=== PATIENT | female | born 2000 | race American Indian/Alaskan Native ===

== ENCOUNTER 2021-01-02 18:57 | Emergency (ER) | payer SELFPAY ==
[2021-01-02 20:08] VITALS: BP 133/85
--- NOTE | 2021-01-02 20:30 | Event Note ---
ED Screening Note Date of service: 01/02/21 Time: 20:28 ED Screening Note: 20-year-old female patient presents to emergency department with complaints of sore throat, cough, and hemoptysis. Patient states she has been coughing for the last 2 days and today she began noticing bright red blood when she coughed. She is not bleeding from any anywhere else. No known sick contacts. She is not anticoagulated. No recent surgery. General: Awake, appropriately interactive, no acute distress. ENT: There is bright red blood noted to the right tonsil. Uvula is midline and nonedematous. No exudate. Neck: Supple. Full range of motion intact. Tender right cervical lymphadenopathy. Cardiovascular: Normal peripheral perfusion. Pulmonary: No respiratory distress. Patient is speaking normally without use of accessory muscles. Skin: No apparent rashes or lesions. Neurological: No facial asymmetry. Speech is clear. Follows commands. Patient is alert and oriented. Musculoskeletal: Moves all four extremities spontaneously with normal range of motion. Psych: Cooperative. Appropriate mood and affect. I have greeted and performed a focused rapid initial assessment of this patient. A comprehensive ED assessment and evaluation of the patient, analysis of all test results, and completion of the medical decision-making process will be conducted by additional ED providers. This initial assessment/diagnostic orders/clinical plan/treatment(s) is/are subject to change based on patients health status, clinical progression and re-assessment. Further treatment and workup at subsequent clinical provider's discretion. Patient/guardian urged not to elope from the ED as their condition may be serious if not clinically assessed and managed.
--- NOTE | 2021-01-02 20:54 | XRay Report ---
CHEST 2 VIEWS INDICATION / CLINICAL INFORMATION: cough. COMPARISON: None available. FINDINGS: SUPPORT DEVICES: None. HEART / MEDIASTINUM: No significant abnormality. LUNGS / PLEURA: No significant pulmonary or pleural abnormality. No pneumothorax. ADDITIONAL FINDINGS: No significant additional findings. IMPRESSION: 1. No acute findings. Signer Name: Kyaw Ruvalcaba MD Signed: 01/02/2021 8:50 PM Workstation Name: [id number]
--- NOTE | 2021-01-02 22:39 | Emergency Department Report ---
ED General Adult HPI - General Chief complaint: Upper Respiratory Infection Stated complaint: COUGHING UP BLOOD Time Seen by Provider: 01/02/21 22:33 Source: patient Mode of arrival: Ambulatory Limitations: No Limitations - History of Present Illness Initial comments: Patient 20-year-old -[place] female with a history of strep throat who presents for sore throat and ear pain x3 days. Patient states mother had strep throat at home 1 last week. Symptoms today include pain with swallowing, malaise and nocturnal fever. Temp is 99.9 in triage today. Patient is tolerating p.o. liquids with some pain. Patient denies relieving factors. There is clear postnasal drip with cough and chest wall pain with coughing. Patient denies history of asthma there is no wheezing no stridor. - Related Data Previous Rx's Medication Instructions Recorded Last Taken Type Acetaminophen/Codeine [Tylenol #3] 1 tab PO QHS PRN #12 tablet 01/25/16 Unknown Rx Amoxicillin [Amoxicillin TAB] 875 mg PO BID #20 tablet 01/25/16 Unknown Rx Ibuprofen [Motrin] 600 mg PO Q8H PRN #21 tablet 01/25/16 Unknown Rx Ketorolac [Toradol] 10 mg PO Q6H PRN #15 tablet 06/16/20 Unknown Rx methOCARBAMOL [Robaxin] 750 mg PO Q8H PRN #21 tablet 06/16/20 Unknown Rx Amoxicillin/Potassium Clav 1 each PO BID 7 Days #14 tablet 01/02/21 Unknown Rx [Augmentin 875-125 Tablet] Ibuprofen [Motrin 800 MG tab] 800 mg PO Q8HR PRN #30 tablet 01/02/21 Unknown Rx predniSONE [Deltasone] 40 mg PO QDAY 5 Days #10 tab 01/02/21 Unknown Rx Allergies Allergy/AdvReac Type Severity Reaction Status Date / Time No Known Allergies Allergy Verified 01/25/16 20:38 ED Review of Systems ROS: Stated complaint: COUGHING UP BLOOD Other details as noted in HPI Constitutional: chills, fever, malaise Eyes: denies: eye pain, eye discharge, vision change ENT: ear pain, throat pain, congestion Respiratory: cough. denies: shortness of breath, wheezing Cardiovascular: chest pain (chest wall pain with cough) Endocrine: no symptoms reported Gastrointestinal: denies: abdominal pain, nausea, vomiting, diarrhea Genitourinary: denies: urgency, dysuria, discharge Musculoskeletal: denies: back pain, joint swelling, arthralgia Skin: denies: rash, lesions Neurological: denies: headache, weakness, paresthesias, vertigo Psychiatric: denies: anxiety, depression Hematological/Lymphatic: denies: easy bleeding, easy bruising ED Past Medical Hx - Past Medical History Previous Medical History?: No Additional medical history: ectopic - Surgical History Past Surgical History?: Yes Additional Surgical History: ectopic - Social History Smoking Status: Never Smoker Substance Use Type: None - Medications Home Medications: Home Medications Medication Instructions Recorded Confirmed Last Taken Type Acetaminophen/Codeine [Tylenol #3] 1 tab PO QHS PRN #12 tablet 01/25/16 Unknown Rx Amoxicillin [Amoxicillin TAB] 875 mg PO BID #20 tablet 01/25/16 Unknown Rx Ibuprofen [Motrin] 600 mg PO Q8H PRN #21 tablet 01/25/16 Unknown Rx Ketorolac [Toradol] 10 mg PO Q6H PRN #15 tablet 06/16/20 Unknown Rx methOCARBAMOL [Robaxin] 750 mg PO Q8H PRN #21 tablet 06/16/20 Unknown Rx Amoxicillin/Potassium Clav 1 each PO BID 7 Days #14 tablet 01/02/21 Unknown Rx [Augmentin 875-125 Tablet] Ibuprofen [Motrin 800 MG tab] 800 mg PO Q8HR PRN #30 tablet 01/02/21 Unknown Rx predniSONE [Deltasone] 40 mg PO QDAY 5 Days #10 tab 01/02/21 Unknown Rx ED Physical Exam - General Limitations: No Limitations General appearance: alert, in no apparent distress - Head Head exam: Present: atraumatic, normocephalic - Eye Eye exam: Present: normal appearance, EOMI Pupils: Present: normal accommodation - ENT ENT exam: Present: mucous membranes moist, TM's normal bilaterally, normal external ear exam - Expanded ENT Exam Expanded Ear exam: Present: normal external inspection Throat exam: Positive: tonsillar erythema, tonsillomegaly, tonsillar exudate, other (uvula midline ). Negative: R peritonsillar mass, L peritonsillar mass - Neck Neck exam: Present: normal inspection, full ROM, lymphadenopathy. Absent: tenderness - Respiratory Respiratory exam: Present: normal lung sounds bilaterally, chest wall tenderness (anteiror chest wall pain with cough only ). Absent: respiratory distress, wheezes, rales, rhonchi, stridor - Cardiovascular Cardiovascular Exam: Present: regular rate, normal rhythm, normal heart sounds. Absent: systolic murmur, diastolic murmur, rubs, gallop - GI/Abdominal GI/Abdominal exam: Present: soft, normal bowel sounds. Absent: distended, tenderness - Rectal Rectal exam: Present: deferred - Extremities Exam Extremities exam: Present: normal inspection, full ROM. Absent: tenderness - Back Exam Back exam: Present: normal inspection, full ROM. Absent: tenderness, CVA tenderness (R), CVA tenderness (L) - Neurological Exam Neurological exam: Present: alert, oriented X3, CN II-XII intact, normal gait - Psychiatric Psychiatric exam: Present: normal affect, normal mood - Skin Skin exam: Present: warm, dry, intact, normal color. Absent: rash ED Course Vital Signs 01/02/21 20:03 Temperature 99.2 F Pulse Rate 99 H Respiratory 15 Rate Blood Pressure 133/85 [Right] O2 Sat by Pulse 99 Oximetry ED Medical Decision Making - Radiology Data Radiology results: report reviewed, image reviewed Ordering Physician: LAKISHA CHURCHILL Date of Service: 01/02/21 Procedure(s): XR chest routine 2V Accession Number(s): [id number] cc: LAKISHA CHURCHILL Fluoro Time In Minutes: CHEST 2 VIEWS INDICATION / CLINICAL INFORMATION: cough. COMPARISON: None available. FINDINGS: SUPPORT DEVICES: None. HEART / MEDIASTINUM: No significant abnormality. LUNGS / PLEURA: No significant pulmonary or pleural abnormality. No pneumothorax. ADDITIONAL FINDINGS: No significant additional findings. IMPRESSION: 1. No acute findings. Signer Name: Kyaw Burkett MD Signed: 01/02/2021 8:50 PM Workstation Name: [id number] Transcribed By: Dictated By: ARIANA BURKETT MD Electronically Authenticated By: ARIANA BURKETT MD Signed Date/Time: 01/02/212049 DD/ 48 TD/TT: - Medical Decision Making Chest x-ray normal no infiltrates no opacities. Airway is patent however there is bilateral tonsillar erythema with exudate, no peritonsillar abscess, no strido,r no wheezing, plan treat for pharyngiti, follow-up primary care doctor in 2 to 3 days. Patient verbalized agreement and understanding with discharge plan. Patient DC'd home in stable condition at this time. Critical care attestation.: If time is entered above; I have spent that time in minutes in the direct care of this critically ill patient, excluding procedure time. ED Disposition Clinical Impression: Pharyngitis Qualifiers: Pharyngitis/tonsillitis etiology: unspecified etiology Qualified Code(s): J02.9 - Acute pharyngitis, unspecified Disposition: DC-01 TO HOME OR SELFCARE Is pt being admited?: No Does the pt Need Aspirin: No Condition: Stable Instructions: Pharyngitis Prescriptions: Amoxicillin/Potassium Clav [Augmentin 875-125 Tablet] 1 each PO BID 7 Days #14 tablet predniSONE [Deltasone] 40 mg PO QDAY 5 Days #10 tab Ibuprofen [Motrin 800 MG tab] 800 mg PO Q8HR PRN #30 tablet PRN Reason: pain fever Referrals: JUAN LUIS ARCE MD [Staff Physician] - 3-5 Days Forms: Work/School Release Form(ED) Time of Disposition: 22:44
[2021-01-02] MEDS ORDERED: predniSONE 20 MG TAB PO ONE (22:40)
[2021-01-02] MEDS ORDERED: AMOXICILLIN/K CLAV 875/125MG TAB PO ONE (22:40)
[2021-01-02] MEDS ORDERED: IBUPROFEN 800 MG TAB PO ONE (22:40)
== END 2021-01-02 23:00 | disposition home or self-care (01) ==
LOC: ED 18:57
DX: J02.9 Acute pharyngitis, unspecified (principal); Z79.899 Other long term (current) drug therapy
CPT/HCPCS: 71046; 99283; J7512

== ENCOUNTER 2022-01-24 10:56 | Emergency (ER) | payer SELFPAY ==
[2022-01-24] MEDS ORDERED: dexAMETHasone 20 MG/5 ML VIAL IM ONE (11:15)
[2022-01-24] MEDS ORDERED: IPRATROPIUM/ALBUTEROL SULFATE 3 ML AMPUL.NEB IH ONE (11:15)
--- NOTE | 2022-01-24 11:26 | Emergency Department Report ---
ED General Adult HPI - General Chief complaint: Dyspnea/Respdistress Stated complaint: ASTHMA ATTACK Time Seen by Provider: 01/24/22 11:14 Source: patient Mode of arrival: Ambulatory Limitations: No Limitations - History of Present Illness Initial comments: Is a 21-year-old female with history of asthma who presents for cough wheezing x3 days. Symptoms are normally controlled with albuterol inhaler use as needed patient states she has used it 4 times today. Without improvement. Patient denies fevers or chills. Cough is productive clear. Patient rates symptoms at 4/10 for normal asthma attack. There is no chest pain no nausea no vomiting. Patient able to speak in full sentences patient drove self to ED patient is alert oriented x3 and amatory with steady gait, symptoms are exacerbated by environmental exposure. Symptoms are relieved by nothing - Related Data Previous Rx's Medication Instructions Recorded Last Taken Type Acetaminophen/Codeine [Tylenol #3] 1 tab PO QHS PRN #12 tablet 01/25/16 Unknown Rx Amoxicillin [Amoxicillin TAB] 875 mg PO BID #20 tablet 01/25/16 Unknown Rx Ibuprofen [Motrin] 600 mg PO Q8H PRN #21 tablet 01/25/16 Unknown Rx Ketorolac [Toradol] 10 mg PO Q6H PRN #15 tablet 06/16/20 Unknown Rx methOCARBAMOL [Robaxin] 750 mg PO Q8H PRN #21 tablet 06/16/20 Unknown Rx Amoxicillin/Potassium Clav 1 each PO BID 7 Days #14 tablet 01/02/21 Unknown Rx [Augmentin 875-125 Tablet] Ibuprofen [Motrin 800 MG tab] 800 mg PO Q8HR PRN #30 tablet 01/02/21 Unknown Rx predniSONE [Deltasone] 40 mg PO QDAY 5 Days #10 tab 01/02/21 Unknown Rx Albuterol Mdi (or & Nicu Only) 2 puff IH QID PRN #8.5 gram 01/24/22 Unknown Rx [ProAir HFA Inhaler] Montelukast [Singulair] 10 mg PO QPM #30 tablet 01/24/22 Unknown Rx dexAMETHasone [Decadron] 4 mg PO BID 5 Days #10 tab 01/24/22 Unknown Rx Allergies Allergy/AdvReac Type Severity Reaction Status Date / Time No Known Allergies Allergy Verified 01/25/16 20:38 ED Review of Systems ROS: Stated complaint: ASTHMA ATTACK Other details as noted in HPI Constitutional: denies: chills, fever Eyes: denies: eye pain, eye discharge, vision change ENT: congestion. denies: ear pain, throat pain Respiratory: cough, shortness of breath, wheezing Cardiovascular: denies: chest pain, palpitations Endocrine: no symptoms reported Gastrointestinal: denies: abdominal pain, nausea, vomiting, diarrhea Genitourinary: denies: urgency, dysuria, discharge Musculoskeletal: denies: back pain, joint swelling, arthralgia Skin: denies: rash, lesions Neurological: denies: headache, weakness, paresthesias, vertigo Psychiatric: as per HPI Hematological/Lymphatic: denies: easy bleeding, easy bruising ED Past Medical Hx - Past Medical History Additional medical history: ectopic - Surgical History Additional Surgical History: ectopic - Social History Smoking Status: Never Smoker Substance Use Type: None - Medications Home Medications: Home Medications Medication Instructions Recorded Confirmed Last Taken Type Acetaminophen/Codeine [Tylenol #3] 1 tab PO QHS PRN #12 tablet 01/25/16 Unknown Rx Amoxicillin [Amoxicillin TAB] 875 mg PO BID #20 tablet 01/25/16 Unknown Rx Ibuprofen [Motrin] 600 mg PO Q8H PRN #21 tablet 01/25/16 Unknown Rx Ketorolac [Toradol] 10 mg PO Q6H PRN #15 tablet 06/16/20 Unknown Rx methOCARBAMOL [Robaxin] 750 mg PO Q8H PRN #21 tablet 06/16/20 Unknown Rx Amoxicillin/Potassium Clav 1 each PO BID 7 Days #14 tablet 01/02/21 Unknown Rx [Augmentin 875-125 Tablet] Ibuprofen [Motrin 800 MG tab] 800 mg PO Q8HR PRN #30 tablet 01/02/21 Unknown Rx predniSONE [Deltasone] 40 mg PO QDAY 5 Days #10 tab 01/02/21 Unknown Rx Albuterol Mdi (or & Nicu Only) 2 puff IH QID PRN #8.5 gram 01/24/22 Unknown Rx [ProAir HFA Inhaler] Montelukast [Singulair] 10 mg PO QPM #30 tablet 01/24/22 Unknown Rx dexAMETHasone [Decadron] 4 mg PO BID 5 Days #10 tab 01/24/22 Unknown Rx ED Physical Exam - General Limitations: No Limitations General appearance: alert, in no apparent distress - Head Head exam: Present: atraumatic - Eye Eye exam: Present: normal appearance, EOMI Pupils: Present: normal accommodation - ENT ENT exam: Present: mucous membranes moist - Neck Neck exam: Present: normal inspection, full ROM. Absent: tenderness - Respiratory Respiratory exam: Present: wheezes. Absent: rales, rhonchi, stridor, prolonged expiratory - Expanded Respiratory Exam Expanded Location: Wheezes: Right, Left, Upper, Lower - Cardiovascular Cardiovascular Exam: Present: normal rhythm, tachycardia (112 bpm), normal heart sounds. Absent: systolic murmur, diastolic murmur, rubs, gallop - GI/Abdominal GI/Abdominal exam: Present: soft, normal bowel sounds. Absent: distended, tenderness - Rectal Rectal exam: Present: deferred - Extremities Exam Extremities exam: Present: normal inspection, full ROM, normal capillary refill - Back Exam Back exam: Present: normal inspection, full ROM. Absent: CVA tenderness (R), CVA tenderness (L) - Neurological Exam Neurological exam: Present: alert, oriented X3, CN II-XII intact, normal gait - Psychiatric Psychiatric exam: Present: normal affect, normal mood - Skin Skin exam: Present: warm, dry, intact, normal color. Absent: rash ED Course Vital Signs 01/24/22 11:02 Temperature 98.2 F Pulse Rate 112 H Respiratory 18 Rate Blood Pressure 123/76 [Right] O2 Sat by Pulse 97 Oximetry ED Medical Decision Making - Medical Decision Making Wheezing is resolved patient states symptoms are 1/10 at this time. Patient has ambulated from room to bathroom and back to room without increased shortness of breath or wheezing. Plan DC to home, follow-up with primary care doctor in 2 to 3 days. Patient verbalized agreement understanding with discharge plan. Patient DC'd in stable condition at this time. Critical care attestation.: If time is entered above; I have spent that time in minutes in the direct care of this critically ill patient, excluding procedure time. ED Disposition Clinical Impression: Asthma Qualifiers: Asthma severity: moderate Asthma persistence: unspecified Asthma complication type: unspecified Qualified Code(s): J45.909 - Unspecified asthma, uncomplicated Disposition: HOME / SELF CARE / HOMELESS Is pt being admited?: No Does the pt Need Aspirin: No Condition: Stable Instructions: Asthma (ED), Asthma, Adult Additional Instructions: Take medications as prescribed, follow-up with your doctor in 2 to 3 days. Return to emergency department should symptoms worsen. Prescriptions: dexAMETHasone [Decadron] 4 mg PO BID 5 Days #10 tab Albuterol Mdi (or & Nicu Only) [ProAir HFA Inhaler] 2 puff IH QID PRN #8.5 gram PRN Reason: Shortness Of Breath Montelukast [Singulair] 10 mg PO QPM #30 tablet Referrals: SUSANNE FLYNN MD [Staff Physician] - 3-5 Days Forms: Work/School Release Form(ED) Time of Disposition: 12:04
[2022-01-24 12:44] VITALS: BP 114/78
== END 2022-01-25 12:43 | disposition home or self-care (01) ==
LOC: ED 10:56
DX: J45.909 Unspecified asthma, uncomplicated (principal)
CPT/HCPCS: 94640; 96372; 99282; J1100

== ENCOUNTER 2022-06-20 18:03 | Emergency (ER) | payer OTHER ==
[2022-06-20 20:55] VITALS: BP 143/89
[2022-06-20 21:20] LABS: HCG Qualitative,Urine Negative (Negative)
== END 2022-06-21 12:01 | disposition left against medical advice (07) ==
LOC: ED 18:03
DX: O03.9 Complete or unspecified spontaneous abortion without complication (principal); Z3A.00 Weeks of gestation of pregnancy not specified; Z53.21 Procedure and treatment not carried out due to patient leaving prior to being seen by health care provider
CPT/HCPCS: 81025